=== PATIENT | female | born 1990 | race Two or more races ===

== ENCOUNTER 2016-09-07 09:47 | Emergency (ER) | payer SELFPAY | END 2016-09-07 12:02 | disposition home or self-care (01) | LOC: D.ER 09:47 | DX: K08.89 Other specified disorders of teeth and supporting structures (principal); S02.5XXA Fracture of tooth (traumatic), initial encounter for closed fracture; X58.XXXA Exposure to other specified factors, initial encounter; Y93.89 Activity, other specified; Y92.019 Unspecified place in single-family (private) house as the place of occurrence of the external cause ==

== ENCOUNTER 2017-07-29 19:32 | Emergency (ER) | payer MEDICAID ==
[2017-07-29 21:04] LABS: BASOPHILS 0.1 % (0-2); EOSINOPHILS 0.8 % (0-7); HEMATOCRIT 28.9 % (36.0-48.0); HEMOGLOBIN 8.7 g/dL (12-16); IMMATURE GRANULOCYTES 0.5 % (0-5); MCH 21.4 pg (26.0-34.0); MCHC 30.1 g/dL (31.0-37.0); MEAN PLATELET VOLUME 10.8 fL (7.4-10.4); MONOCYTES 3.3 % (2-11); NEUTROPHILS 80.3 % (40-80); PLATELET COUNT 301 10x3/uL (130-400); RBC 4.07 10x6/uL (4.00-5.40); RDW 16.4 % (11.5-14.5); WBC 11.7 10x3/uL (4.8-10.8)
[2017-07-29 21:19] LABS: ALBUMIN 2.3 g/dL (3.4-5.0); ALKALINE PHOSPHATASE 103 U/L (46-116); ALT (SGPT) 11 U/L (10-68); BILIRUBIN - TOTAL 0.33 mg/dL (0.2-1.3); CALC OSMOLALITY 273 mosm/kg (275-300); CALCIUM 7.6 mg/dL (8.5-10.1); CARBON DIOXIDE 22.4 mmol/L (21.0-32.0); CHLORIDE - SERUM 107 mmol/L (98-107); CREATININE - SERUM 0.5 mg/dL (0.6-1.3); GLUCOSE 87 mg/dL (74-106); POTASSIUM - SERUM 3.4 mmol/L (3.5-5.1); PROTEIN - SERUM 6.5 g/dL (6.4-8.2); SODIUM 139 mmol/L (136-145); UREA NITROGEN 4 mg/dL (7-18); eGFR NON AFRICAN AMERICAN > 90 mL/min (90-120)
[2017-07-29 22:15] LABS: APPEARANCE HAZY (CLEAR); BILIRUBIN NEGATIVE (NEGATIVE); COLOR DK YELLOW (YELLOW); GLUCOSE NEGATIVE (NEGATIVE); KETONE LARGE mg/dL (NEGATIVE); NITRITE NEGATIVE (NEGATIVE); PROTEIN NEGATIVE (NEGATIVE); SPECIFIC GRAVITY 1.015 (1.005-1.020); UROBILINOGEN NORMAL (NORMAL)
[2017-07-29 22:17] LABS: WHITE CELLS - URINE 0-5 /hpf (0-5)
[2017-07-29 22:18] LABS: BACTERIA FEW /hpf (NONE SEEN); EPITHELIAL CELLS 0-5 /hpf (0-5)
[2017-08-18 18:15] VITALS: BMI 33.1
== END 2017-07-29 23:23 | disposition home or self-care (01) ==
LOC: D.ER 19:32
PROVIDERS: Physician Assistant Medical
DX: J01.90 Acute sinusitis, unspecified (principal); N39.0 Urinary tract infection, site not specified

== ENCOUNTER 2017-08-07 14:27 | Emergency (ER) | payer MEDICAID ==
[2017-08-18 18:15] VITALS: BMI 33.1
== END 2017-08-07 16:53 | disposition home or self-care (01) ==
LOC: D.ER 14:27
DX: J20.9 Acute bronchitis, unspecified (principal); J06.9 Acute upper respiratory infection, unspecified

== ENCOUNTER 2017-08-17 23:10 | Observation (INO) | payer MEDICAID ==
[~2017-08-17] VITALS: Ht 170.2 cm; Wt 95.7 kg
[2017-08-17 23:39] LABS: APPEARANCE CLEAR (CLEAR); BILIRUBIN NEGATIVE (NEGATIVE); COLOR DK YELLOW (YELLOW); GLUCOSE NEGATIVE (NEGATIVE); KETONE LARGE mg/dL (NEGATIVE); NITRITE NEGATIVE (NEGATIVE); PROTEIN NEGATIVE (NEGATIVE); UROBILINOGEN NORMAL (NORMAL)
[2017-08-18 18:15] VITALS: BP 112/69; Ht 170.2 cm; Wt 95.7 kg
[2017-08-18] MEDS ORDERED: FERROUS SULFAT325 MG PO (18:28)
[2017-08-18] MEDS ORDERED: PRENATAL COMPLE1 TAB PO (18:28)
[2017-08-19] MEDS ORDERED: REGLAN10 MG PO (10:14)
[2017-08-19] MEDS ORDERED: PEPCID20 MG PO (10:15)
== END 2017-08-19 11:00 | disposition home or self-care (01) ==
LOC: D.LDO 23:10 → D.LD 23:25 → D.LDO 08-18 15:20 → D.LD 08-18 15:21 → OBSVTIME 08-18 15:21 → D.LD 08-18 17:27
PROVIDERS: ADMIT Obstetrics & Gynecology
DX: O26.893 Other specified pregnancy related conditions, third trimester (principal); A08.4 Viral intestinal infection, unspecified

== ENCOUNTER 2017-10-29 07:15 | Emergency (ER) | payer MEDICAID ==
[2017-08-18 18:15] VITALS: BMI 33.1
[~2017-10-29 07:15] MED LIST: FERROUS SULFAT325 MG PO; PEPCID20 MG PO; PRENATAL COMPLE1 TAB PO; REGLAN10 MG PO
== END 2017-10-29 08:38 | disposition home or self-care (01) ==
LOC: D.ER 07:15
DX: J20.9 Acute bronchitis, unspecified (principal)

== ENCOUNTER 2018-03-03 10:51 | Emergency (ER) | payer MEDICAID ==
[~2018-03-03] VITALS: Ht 170.2 cm; Wt 85.0 kg
[2018-03-03 10:54] VITALS: Ht 170.2 cm; Wt 85.0 kg
[2018-03-03 11:31] LABS: HCG URINE NEGATIVE (NEGATIVE)
[2018-03-03 11:34] LABS: BASOPHILS 0.1 % (0-2); EOSINOPHILS 0.3 % (0-7); HEMATOCRIT 29.4 % (36.0-48.0); HEMOGLOBIN 8.6 g/dL (12-16); IMMATURE GRANULOCYTES 0.2 % (0-5); LYMPHOCYTES 6.5 % (15-50); MCHC 29.3 g/dL (31.0-37.0); MCV 65.3 fL (80.0-100.0); MEAN PLATELET VOLUME 10.9 fL (7.4-10.4); MONOCYTES 4.9 % (2-11); RDW 17.4 % (11.5-14.5); WBC 13.8 10x3/uL (4.8-10.8)
[2018-03-03 11:38] LABS: MCH 19.1 pg (26.0-34.0); PLATELET COUNT 367 10x3/uL (130-400)
[2018-03-03 11:39] LABS: APPEARANCE CLOUDY (CLEAR); BILIRUBIN NEGATIVE (NEGATIVE); COLOR YELLOW (YELLOW); GLUCOSE NEGATIVE (NEGATIVE); KETONE MODERATE mg/dL (NEGATIVE); NITRITE NEGATIVE (NEGATIVE); PROTEIN 2+ mg/dL (NEGATIVE); SPECIFIC GRAVITY 1.015 (1.005-1.020); UROBILINOGEN NORMAL (NORMAL)
[2018-03-03 11:41] LABS: BACTERIA MODERATE /hpf (NONE SEEN); EPITHELIAL CELLS 0-5 /hpf (0-5); MUCUS <1+ /lpf (NONE SEEN); RED CELLS - URINE 0-5 /hpf (0-5)
[2018-03-03 11:48] LABS: ALBUMIN 3.7 g/dL (3.4-5.0); ALKALINE PHOSPHATASE 66 U/L (46-116); ALT (SGPT) 28 U/L (10-68); AMYLASE - SERUM 34 U/L (25-115); BILIRUBIN - TOTAL 0.75 mg/dL (0.2-1.3); CALC OSMOLALITY 279 mosm/kg (275-300); CALCIUM 8.6 mg/dL (8.5-10.1); CHLORIDE - SERUM 107 mmol/L (98-107); CREATININE - SERUM 0.8 mg/dL (0.6-1.3); GLUCOSE 105 mg/dL (74-106); POTASSIUM - SERUM 3.7 mmol/L (3.5-5.1); PROTEIN - SERUM 7.3 g/dL (6.4-8.2); SODIUM 141 mmol/L (136-145); UREA NITROGEN 9 mg/dL (7-18); eGFR NON AFRICAN AMERICAN > 90 mL/min (90-120)
[2018-03-03] MEDS ORDERED: LEVAQUIN750 MG PO (14:50)
[2018-03-03] MEDS ORDERED: ZOFRAN4 MG PO (14:50)
[2018-03-03 16:07] VITALS: BP 120/65
== END 2018-03-03 16:07 | disposition home or self-care (01) ==
LOC: D.ER 10:51
PROVIDERS: Emergency Medicine
DX: N39.0 Urinary tract infection, site not specified (principal); D64.9 Anemia, unspecified; N12 Tubulo-interstitial nephritis, not specified as acute or chronic; R11.0 Nausea; K59.00 Constipation, unspecified; R35.0 Frequency of micturition; F17.200 Nicotine dependence, unspecified, uncomplicated

== ENCOUNTER → 2018-04-02 11:21 | Outpatient (CLI) | payer MEDICAID ==
[2018-03-03 10:54] VITALS: BMI 29.3
[~2018-04-02 11:21] MED LIST changes: +LEVAQUIN750 MG PO; +ZOFRAN4 MG PO
== END | disposition home or self-care (01) ==
LOC: D.US 03-08 09:30
DX: R92.8 Other abnormal and inconclusive findings on diagnostic imaging of breast (principal)

== ENCOUNTER 2018-10-03 18:01 | Emergency (ER) | payer MEDICAID ==
[~2018-10-03] VITALS: Ht 170.2 cm; Wt 88.2 kg
[2018-10-03 18:20] VITALS: Ht 170.2 cm; Wt 88.2 kg
[2018-10-03] MEDS ORDERED: ALEVE220 MG PO (18:22)
[2018-10-03] MEDS ORDERED: TORADOL10 MG PO (20:00)
[2018-10-03 21:08] VITALS: BP 135/70
== END 2018-10-03 21:08 | disposition home or self-care (01) ==
LOC: D.ER 18:01
DX: M70.52 Other bursitis of knee, left knee (principal); Y93.89 Activity, other specified

== ENCOUNTER 2019-05-30 05:05 | Emergency (ER) | payer MEDICAID ==
[~2019-05-30] VITALS: Ht 170.2 cm; Wt 84.5 kg
[~2019-05-30 05:05] MED LIST changes: +ALEVE220 MG PO; +TORADOL10 MG PO
[2019-05-30 05:21] VITALS: Ht 170.2 cm; Wt 84.5 kg
[2019-05-30] MEDS ORDERED: VALIUM10 MG PO (06:13)
[2019-05-30] MEDS ORDERED: HYDROCODONE-A1 UDTA2 PO (06:13)
[2019-05-30 07:03] VITALS: BP 138/86
== END 2019-05-30 07:03 | disposition home or self-care (01) ==
LOC: D.ER 05:05
DX: M54.2 Cervicalgia (principal)

== ENCOUNTER 2019-07-18 17:27 | Emergency (ER) | payer MEDICAID ==
[~2019-07-18] VITALS: Ht 170.2 cm; Wt 80.0 kg
[~2019-07-18 17:27] MED LIST changes: +HYDROCODONE-A1 UDTA2 PO; +VALIUM10 MG PO
[2019-07-18 18:08] VITALS: BP 135/81; Ht 170.2 cm; Wt 80.0 kg
[2019-07-18] MEDS ORDERED: VOLTAREN75 MG PO (20:21)
== END 2019-07-18 21:00 | disposition home or self-care (01) ==
LOC: D.ER 17:27
DX: S99.921A Unspecified injury of right foot, initial encounter (principal); W20.8XXA Other cause of strike by thrown, projected or falling object, initial encounter; M79.671 Pain in right foot; F17.210 Nicotine dependence, cigarettes, uncomplicated

== ENCOUNTER 2020-03-08 00:01 | Emergency (ER) | payer MEDICAID ==
[~2020-03-08] VITALS: Ht 170.2 cm; Wt 76.4 kg
[~2020-03-08 00:01] MED LIST changes: +BUSPAR10 MG PO; +DOXYCYCLINE HY100 M2 PO; +FLAGYL500 MG PO; +NORCO-7.51 TAB PO; +VOLTAREN75 MG PO
[2020-03-08 00:13] VITALS: Ht 170.2 cm; Wt 76.4 kg
[2020-03-08] MEDS ORDERED: TORADOL10 MG PO (00:48)
[2020-03-08 01:58] VITALS: BP 118/70
== END 2020-03-08 01:58 | disposition home or self-care (01) ==
LOC: D.ER 00:01
DX: S93.401A Sprain of unspecified ligament of right ankle, initial encounter (principal); S80.211A Abrasion, right knee, initial encounter; S80.01XA Contusion of right knee, initial encounter; W01.0XXA Fall on same level from slipping, tripping and stumbling without subsequent striking against object, initial encounter; Y93.9 Activity, unspecified; Y92.9 Unspecified place or not applicable